=== PATIENT | male | born 1960 | race Caucasian/White ===

== ENCOUNTER 2019-06-08 06:07 | Day surgery (SDC) | payer MEDICARE ==
[2019-06-07 14:03] LABS: BASOPHILS % (AUTO) 0.4 % (0-1); EOSINOPHILS # (AUTO) 0.1 X10'3 (0-0.9); EOSINOPHILS % (AUTO) 1.9 % (0-6); HEMATOCRIT 44.3 % (42.0-52.0); HEMOGLOBIN 14.5 g/dl (14.0-17.9); LYMPHOCYTES # (AUTO) 2.3 X10'3 (1.1-4.8); LYMPHOCYTES % (AUTO) 31.8 % (21-51); MEAN CORPUSCULAR HEMOGLOBIN 28.7 PG (27.0-31.0); MEAN CORPUSCULAR HGB CONC 32.8 g/dL (33.0-36.5); MEAN CORPUSCULAR VOLUME 87.5 FL (78-98); MEAN PLATELET VOLUME 9.1 FL (7.4-10.4); MONOCYTES # (AUTO) 0.8 X10'3 (0-0.9); MONOCYTES % (AUTO) 10.6 % (2-12); NEUTROPHILS # (AUTO) 4.1 X10'3 (1.8-7.7); NEUTROPHILS % (AUTO) 55.3 % (42-75); PLATELET COUNT 152 X10'3 (140-440); RED BLOOD COUNT 5.06 X10'6 (4.70-6.10); RED CELL DISTRIBUTION WIDTH 18.2 % (11.5-14.5); WHITE BLOOD COUNT 7.3 X10'3 (4.5-11.0)
[2019-06-07 14:14] LABS: PARTIAL THROMBOPLASTIN TIME 28 SECONDS (22-32)
[2019-06-07 14:22] LABS: ALANINE AMINOTRANSFERASE 38 U/L (12-78); ALBUMIN 3.5 G/DL (3.4-5.0); ALKALINE PHOSPHATASE 95 IU/L (46-116); ANION GAP 6 (8-16); ASPARTATE AMINO TRANSFERASE 21 U/L (10-37); BILIRUBIN,TOTAL 1.1 MG/DL (0.1-1.0); BLOOD UREA NITROGEN 16 MG/DL (7-18); BUN/CREATININE RATIO 13.1 (5.4-32.0); CALCIUM 10.4 MG/DL (8.5-10.1); CHLORIDE 109 MMOL/L (99-107); CHOL/HDL RATIO 2.3 (0.00-4.99); CHOLESTEROL 121 MG/DL (0-200); CREATININE 1.22 MG/DL (0.60-1.10); GLUCOSE 100 MG/DL (70-104); HDL CHOLESTEROL 52 MG/DL (35-60); LDL CHOLESTEROL 59 MG/DL (50-100); POTASSIUM 3.9 MMOL/L (3.5-5.1); SODIUM 144 MMOL/L (135-145); TOTAL CARBON DIOXIDE 28.6 MMOL/L (24-32); TOTAL PROTEIN 6.9 G/DL (6.4-8.2); TRIGLYCERIDES 78 MG/DL (20-135); eGFR 61 ML/MIN
[~2019-06-08] VITALS: Ht 195.6 cm; Wt 121.4 kg
[2019-06-08] VITALS (15 sets, daily range): BP systolic 140–195; BP diastolic 76–109
[~2019-06-08 06:07] MED LIST: CYCL-1 PO; ONDA4TAB6 PO
[2019-06-08] MEDS ORDERED: normal saline 1,000 ML IV SCH (06:20)
[2019-06-08] MEDS ORDERED: METO50TA17 PO (07:06)
[2019-06-08] MEDS ORDERED: GLYB1TAB39 PO ×2 (07:06→07:08)
[2019-06-08] MEDS ORDERED: APIX5TAB3 PO (07:06)
[2019-06-08] MEDS ORDERED: LEVO150T8 PO (07:06)
[2019-06-08] MEDS ORDERED: DEC1T PO (07:06)
[2019-06-08] MEDS ORDERED: ASPI-1265 PO (07:06)
[2019-06-08] MEDS ORDERED: PREG100C PO (07:06)
[2019-06-08] MEDS ORDERED: FURO40TA4 PO (07:06)
[2019-06-08] MEDS ORDERED: LISI40TA4 PO (07:06)
[2019-06-08] MEDS ORDERED: ATOR40TA PO (07:06)
[2019-06-08] MEDS ORDERED: POTA-84 PO (07:06)
[2019-06-08] MEDS ORDERED: diphenhydrAMINE 25mg capsule PO PRN (07:40)
[2019-06-08] MEDS ORDERED: LORazepam 0.5 MG tablet PO PRN (07:40)
[2019-06-08] MEDS ORDERED: nitroGLYCERIN-Tridil 50MG/D5W 250 ML IV ONE (07:46)
[2019-06-08] MEDS ORDERED: iohexol 350 MG/ML 50ML vial IV ONE (07:47)
[2019-06-08] MEDS ORDERED: midazolam 2 mg/2 ml injection ONE ×2 (07:47→08:59)
[2019-06-08] MEDS ORDERED: fentaNYL/PF 50MCG/1 ML 2ML syringe ONE (07:47)
[2019-06-08] MEDS ORDERED: heparin 1,000unit/ml 10ml vial 10 ML ONE (07:47)
[2019-06-08] MEDS ORDERED: iohexol 350MG/ML 100ml bottle IV ONE ×2 (07:47→09:00)
[2019-06-08] MEDS ORDERED: LIDOcaine 1% 30ml preserv. free vial ONE (07:47)
[2019-06-08 07:53] LABS: CHOL/HDL RATIO 2.3 (0.00-4.99); CHOLESTEROL 122 MG/DL (0-200); HDL CHOLESTEROL 53 MG/DL (35-60); LDL CHOLESTEROL 59 MG/DL (50-100); TRIGLYCERIDES 54 MG/DL (20-135)
[2019-06-08] MEDS ORDERED: iohexol 350 MG/1 ML 200ml bottle ONE (08:59)
[2019-06-08] MEDS ORDERED: heparin 25,000 UNIT/250ml bag 250 ML IV ONE (09:25)
[2019-06-08 09:56] LABS: ISTAT Hct MIX 42 %PCV (42-52); ISTAT O2 SATURATION MIX VENOUS 60 % (60-80); ISTAT SOURCE MIX
[2019-06-08] MEDS ORDERED: clopidogrel 300mg tablet ONE (09:58)
[2019-06-08] MEDS ORDERED: aspirin 81mg tab.chew PO SCH (11:36)
[2019-06-08] MEDS ORDERED: acetaminophen 325mg tablet PO PRN (11:40)
[2019-06-08] MEDS ORDERED: magnesium hydroxide 30ml (MOM) UD suspension PO PRN (11:40)
[2019-06-08] MEDS ORDERED: OXAZEpam 15mg capsule PO PRN (11:40)
[2019-06-08] MEDS ORDERED: normal saline 1000ml 1,000 ML IV SCH (11:40)
[2019-06-08] MEDS ORDERED: HYDROcodone/acetaminophen 10/325mg tab PO PRN (11:40)
[2019-06-08] MEDS ORDERED: proCHLORperazine 10 MG/2 ml inj IV PRN (11:40)
[2019-06-08] MEDS ORDERED: cyclobenzaprine 10mg tablet PO PRN (11:40)
[2019-06-08] MEDS ORDERED: heparin 25,000 UNIT/250ml bag 250 ML IV SCH (11:42)
[2019-06-08] MEDS ORDERED: heparin 10,000 units/1 ML INJ IV PRN (11:45)
[2019-06-08] MEDS ORDERED: heparin 10,000 units/1 ML INJ IV ONE (11:45)
[2019-06-08] MEDS: acetylcysteine 200 MG/ml 4ml vial PO SCH ×2 (11:49→17:11)
[2019-06-08] MEDS: HYDROcodone/acetaminophen 10/325mg tab PO PRN ×2 (11:50→17:04)
[2019-06-08 12:15] LABS: ISTAT HGB ART 14.3 g/dl (14.0-18.0); ISTAT Hct ART 42 %PCV (42-52); ISTAT O2 SATURATION ARTERIAL 98 % (95-98); ISTAT SOURCE ART
--- NOTE | 2019-06-08 12:30 | NUR ---
spoke with Billy in labor relations worker, relayed ACT result. pt ready to have angioseal placed per order. Waiting for Cath RN. Pt resting comfortably. Appears to be resting, vs stable as charted. pt respirations even.
--- NOTE | 2019-06-08 14:14 | NUR ---
Problems reprioritized. Patient report given, questions answered & plan of care reviewed with Messi FUENTES.
[2019-06-08] MEDS ORDERED: docusate sod 100mg capsule PO SCH (20:00)
[2019-06-09] MEDS ORDERED: clopidogrel 75mg tablet PO SCH (08:00)
== END 2019-06-08 18:55 | disposition home or self-care (01) ==
LOC: SSTAY O 06:07
PROVIDERS: ATTEND Internal Medicine Cardiovascular Disease
DX: I25.10 Atherosclerotic heart disease of native coronary artery without angina pectoris (principal); I25.82 Chronic total occlusion of coronary artery; E78.5 Hyperlipidemia, unspecified; E11.9 Type 2 diabetes mellitus without complications; G47.33 Obstructive sleep apnea (adult) (pediatric); Z79.899 Other long term (current) drug therapy; Z95.1 Presence of aortocoronary bypass graft
CPT/HCPCS: 36415; 80053; 80061; 82803; 85014; 85025; 85347; 85610; 85730; 93005; 93461; 99152; 99153; C1725; C1769; C1874; C9600; C9601; J1644; J2001; J2250; J3010; J7030; J7040; Q0163; Q9967; A4620; A6258; J3490

== ENCOUNTER 2019-06-15 05:28 | Day surgery (SDC) | payer MEDICARE ==
[2019-06-14 12:43] LABS: BASOPHILS % (AUTO) 0.6 % (0-1); EOSINOPHILS # (AUTO) 0.1 X10'3 (0-0.9); EOSINOPHILS % (AUTO) 2.6 % (0-6); HEMOGLOBIN 14.1 g/dl (14.0-17.9); LYMPHOCYTES # (AUTO) 1.4 X10'3 (1.1-4.8); LYMPHOCYTES % (AUTO) 25.3 % (21-51); MEAN CORPUSCULAR HEMOGLOBIN 28.4 PG (27.0-31.0); MEAN CORPUSCULAR HGB CONC 32.7 g/dL (33.0-36.5); MEAN PLATELET VOLUME 8.8 FL (7.4-10.4); MONOCYTES # (AUTO) 0.5 X10'3 (0-0.9); MONOCYTES % (AUTO) 9.4 % (2-12); NEUTROPHILS # (AUTO) 3.4 X10'3 (1.8-7.7); NEUTROPHILS % (AUTO) 62.1 % (42-75); PLATELET COUNT 120 X10'3 (140-440); RED BLOOD COUNT 4.95 X10'6 (4.70-6.10); RED CELL DISTRIBUTION WIDTH 18.2 % (11.5-14.5); WHITE BLOOD COUNT 5.4 X10'3 (4.5-11.0)
[2019-06-14 12:59] LABS: ALBUMIN 3.5 G/DL (3.4-5.0); ANION GAP 7 (8-16); BLOOD UREA NITROGEN 11 MG/DL (7-18); BUN/CREATININE RATIO 9.4 (5.4-32.0); CHLORIDE 109 MMOL/L (99-107); CREATININE 1.17 MG/DL (0.60-1.10); GLUCOSE 153 MG/DL (70-104); SODIUM 143 MMOL/L (135-145); TOTAL CARBON DIOXIDE 26.9 MMOL/L (24-32); eGFR 64 ML/MIN
[2019-06-14 13:07] LABS: PARTIAL THROMBOPLASTIN TIME 30 SECONDS (22-32)
[2019-06-15] VITALS (13 sets, daily range): BP systolic 120–199; BP diastolic 63–102
[~2019-06-15] VITALS: Ht 195.6 cm; Wt 121.7 kg
[~2019-06-15 05:28] MED LIST changes: +APIX5TAB3 PO; +ASPI-1265 PO; +ATOR40TA PO; -CYCL-1 PO; +DEC1T PO; +FURO40TA4 PO; +GLYB1TAB39 PO; +LEVO150T8 PO; +LISI40TA4 PO; +METO50TA17 PO; -ONDA4TAB6 PO; +POTA-84 PO; +PREG100C PO
[2019-06-15] MEDS ORDERED: LORazepam 0.5 MG tablet PO PRN (05:55)
[2019-06-15] MEDS ORDERED: diphenhydrAMINE 25mg capsule PO PRN (05:55)
[2019-06-15] MEDS ORDERED: LIDOcaine/PRILOcaine 5gm cream TP ONE (06:10)
[2019-06-15] MEDS ORDERED: CLOP75TA15 PO (07:18)
[2019-06-15] MEDS ORDERED: nitroGLYCERIN-Tridil 50MG/D5W 250 ML IV ONE (07:52)
[2019-06-15] MEDS ORDERED: heparin 1,000unit/ml 10ml vial 10 ML ONE (07:52)
[2019-06-15] MEDS ORDERED: LIDOcaine 1% (10mg/ml)w/preservative injection 20ml MDV ONE (07:52)
[2019-06-15] MEDS ORDERED: iohexol 350 MG/1 ML 200ml bottle ONE (07:53)
[2019-06-15] MEDS ORDERED: verapamil 2.5 mg/ml inj IV ONE (07:54)
[2019-06-15] MEDS ORDERED: midazolam 2 mg/2 ml injection ONE (08:12)
[2019-06-15] MEDS ORDERED: fentaNYL/PF 50MCG/1 ML 2ML syringe ONE (08:13)
[2019-06-15] MEDS ORDERED: heparin 25,000 UNIT/250ml bag 250 ML IV ONE (08:43)
[2019-06-15] MEDS ORDERED: clopidogrel 300mg tablet ONE (09:11)
[2019-06-15] MEDS ORDERED: normal saline 1000ml 1,000 ML IV SCH (09:50)
[2019-06-15] MEDS ORDERED: cyclobenzaprine 10mg tablet PO PRN (10:10)
[2019-06-15] MEDS ORDERED: OXAZEpam 15mg capsule PO PRN (10:10)
[2019-06-15] MEDS ORDERED: HYDROcodone/acetaminophen 10/325mg tab PO PRN ×2 (10:10)
[2019-06-15] MEDS ORDERED: acetaminophen 325mg tablet PO PRN (10:10)
[2019-06-15] MEDS ORDERED: magnesium hydroxide 30ml (MOM) UD suspension PO PRN (10:10)
[2019-06-15] MEDS ORDERED: aspirin 81mg tab.chew PO ONE (10:15)
--- NOTE | 2019-06-15 11:33 | NUR ---
pt spO2 fluctuating between 95% and 85% as he is intermittency sleeping. placed pt on 2L O2. will continue to monitor
[2019-06-15] MEDS ORDERED: docusate sod 100mg capsule PO SCH (20:00)
[2019-06-16] MEDS ORDERED: aspirin 81mg tab.chew PO SCH (08:00)
[2019-06-16] MEDS ORDERED: clopidogrel 75mg tablet PO SCH (08:00)
== END 2019-06-15 16:00 | disposition home or self-care (01) ==
LOC: SSTAY O 05:28
PROVIDERS: ATTEND Internal Medicine Cardiovascular Disease
DX: I25.10 Atherosclerotic heart disease of native coronary artery without angina pectoris (principal); I10 Essential (primary) hypertension; E78.5 Hyperlipidemia, unspecified; I48.2 Chronic atrial fibrillation; E03.9 Hypothyroidism, unspecified; E11.9 Type 2 diabetes mellitus without complications; G47.33 Obstructive sleep apnea (adult) (pediatric); Z98.890 Other specified postprocedural states; Z88.0 Allergy status to penicillin; Z95.1 Presence of aortocoronary bypass graft; Z79.01 Long term (current) use of anticoagulants; Z79.899 Other long term (current) drug therapy; Z79.82 Long term (current) use of aspirin; Z79.84 Long term (current) use of oral hypoglycemic drugs
CPT/HCPCS: 36415; 80048; 82948; 85025; 85347; 85610; 85730; 93005; 99152; 99153; C1725; C1769; C1874; C1894; C9604; J1644; J2001; J2250; J3010; J7030; Q0163; Q9967; 93459; A4620; C9600; J3490

== ENCOUNTER 2019-10-20 13:35 | Emergency (ER) | payer MEDICARE ==
[~2019-10-20] VITALS: Ht 195.6 cm; Wt 122.0 kg
[~2019-10-20 13:35] MED LIST changes: +CLOP75TA15 PO
[2019-10-20 14:07] VITALS: BP 167/120
[2019-10-20 15:08] LABS: BASOPHILS % (AUTO) 0.7 % (0-1); EOSINOPHILS # (AUTO) 0.3 X10'3 (0-0.9); EOSINOPHILS % (AUTO) 4.3 % (0-6); HEMATOCRIT 43.2 % (42.0-52.0); HEMOGLOBIN 13.9 g/dl (14.0-17.9); LYMPHOCYTES # (AUTO) 1.5 X10'3 (1.1-4.8); LYMPHOCYTES % (AUTO) 20.9 % (21-51); MEAN CORPUSCULAR HGB CONC 32.1 g/dL (33.0-36.5); MEAN CORPUSCULAR VOLUME 84.2 FL (78-98); MEAN PLATELET VOLUME 8.8 FL (7.4-10.4); MONOCYTES # (AUTO) 0.7 X10'3 (0-0.9); MONOCYTES % (AUTO) 10.6 % (2-12); NEUTROPHILS # (AUTO) 4.4 X10'3 (1.8-7.7); NEUTROPHILS % (AUTO) 63.5 % (42-75); PLATELET COUNT 170 X10'3 (140-440); RED BLOOD COUNT 5.13 X10'6 (4.70-6.10); RED CELL DISTRIBUTION WIDTH 18.7 % (11.5-14.5)
[2019-10-20 15:20] LABS: ALANINE AMINOTRANSFERASE 27 U/L (12-78); ALBUMIN 3.4 G/DL (3.4-5.0); ALKALINE PHOSPHATASE 115 IU/L (46-116); ANION GAP 4 (8-16); ASPARTATE AMINO TRANSFERASE 19 U/L (10-37); BILIRUBIN,TOTAL 1.3 MG/DL (0.1-1.0); BLOOD UREA NITROGEN 17 MG/DL (7-18); BUN/CREATININE RATIO 13.2 (5.4-32.0); CALCIUM 10.3 MG/DL (8.5-10.1); CHLORIDE 106 MMOL/L (99-107); CREATININE 1.29 MG/DL (0.60-1.10); GLUCOSE 211 MG/DL (70-104); POTASSIUM 4.2 MMOL/L (3.5-5.1); SODIUM 140 MMOL/L (135-145); TOTAL CARBON DIOXIDE 30.5 MMOL/L (24-32); TOTAL PROTEIN 6.9 G/DL (6.4-8.2); eGFR 57 ML/MIN
[2019-10-20] MEDS ORDERED: ondansetron 4mg rapidly disintigrating tab PO ONE (15:55)
[2019-10-20] MEDS ORDERED: HYDROcodone/acetaminophen 10/325mg tab PO ONE (15:55)
[2019-10-20] MEDS ORDERED: ketorolac trometh. 30mg/ml inj. IM ONE (15:55)
[2019-10-20] MEDS ORDERED: amLODIPine 5mg tablet PO ONE (16:05)
[2019-10-20 16:21] LABS: PLATELET ESTIMATE NORMAL
[2019-10-20 16:22] LABS: ANISOCYTOSIS 2+
== END 2019-10-20 16:35 | disposition home or self-care (01) ==
LOC: ER 13:36
DX: R07.81 Pleurodynia (principal); I48.91 Unspecified atrial fibrillation; I10 Essential (primary) hypertension; G89.29 Other chronic pain; Z98.61 Coronary angioplasty status; Z95.1 Presence of aortocoronary bypass graft; Z98.890 Other specified postprocedural states; Z88.0 Allergy status to penicillin; Z88.8 Allergy status to other drugs, medicaments and biological substances; Z79.82 Long term (current) use of aspirin; Z79.899 Other long term (current) drug therapy
CPT/HCPCS: 36415; 71045; 80053; 84484; 85025; 93005; 96372; 99284; J1885

== ENCOUNTER 2021-04-21 13:11 | Inpatient (IN) | payer MEDICARE ==
[~2021-04-21] VITALS: Ht 195.6 cm; Wt 122.7 kg
[~2021-04-21 13:11] MED LIST changes: -APIX5TAB3 PO; -ASPI-1265 PO; +ASPI-845 PO; +CLIN300C54 PO; -CLOP75TA15 PO; -DEC1T PO; +DEXA0.5T PO; +LEVO137T2 PO; -LEVO150T8 PO; +LISI40TA13 PO; -LISI40TA4 PO; +OXYC-145 PO; -PREG100C PO; +SOMA10CA5 SQ; +TEST200V10 IM
[2021-04-21 14:24] LABS: BASOPHILS # (AUTO) 0.1 X10'3 (0-0.2); BASOPHILS % (AUTO) 0.8 % (0-1); EOSINOPHILS # (AUTO) 0.4 X10'3 (0-0.9); EOSINOPHILS % (AUTO) 4.4 % (0-6); HEMATOCRIT 47.4 % (42.0-52.0); HEMOGLOBIN 15.3 g/dl (14.0-17.9); LYMPHOCYTES # (AUTO) 1.4 X10'3 (1.1-4.8); LYMPHOCYTES % (AUTO) 14.2 % (21-51); MEAN CORPUSCULAR HEMOGLOBIN 27.9 PG (27.0-31.0); MEAN CORPUSCULAR HGB CONC 32.3 g/dL (33.0-36.5); MEAN CORPUSCULAR VOLUME 86.4 FL (78-98); MEAN PLATELET VOLUME 8.4 FL (7.4-10.4); MONOCYTES # (AUTO) 0.9 X10'3 (0-0.9); MONOCYTES % (AUTO) 9.3 % (2-12); NEUTROPHILS % (AUTO) 71.3 % (42-75); PLATELET COUNT 217 X10'3 (140-440); RED BLOOD COUNT 5.48 X10'6 (4.70-6.10); RED CELL DISTRIBUTION WIDTH 17.9 % (11.5-14.5); WHITE BLOOD COUNT 9.8 X10'3 (4.5-11.0)
[2021-04-21] MEDS ORDERED: oxyCODONE/APAP 5-325mg tablet PO ONE (14:25)
[2021-04-21 14:37] LABS: ALANINE AMINOTRANSFERASE 21 U/L (12-78); ALBUMIN 3.1 G/DL (3.4-5.0); ALBUMIN/GLOBULIN RATIO 0.8 (1.1-1.5); ALKALINE PHOSPHATASE 100 IU/L (46-116); ANION GAP -1 (8-16); ASPARTATE AMINO TRANSFERASE 22 U/L (10-37); BILIRUBIN,TOTAL 1.7 MG/DL (0.1-1.0); BLOOD UREA NITROGEN 17 MG/DL (7-18); BUN/CREATININE RATIO 13.6 (5.4-32.0); CALCIUM 10.5 MG/DL (8.5-10.1); CHLORIDE 107 MMOL/L (99-107); CREATININE 1.25 MG/DL (0.60-1.10); GLUCOSE 148 MG/DL (70-104); POTASSIUM 3.5 MMOL/L (3.5-5.1); SODIUM 134 MMOL/L (135-145); TOTAL CARBON DIOXIDE 27.8 MMOL/L (24-32); TOTAL PROTEIN 6.8 G/DL (6.4-8.2); eGFR 59 ML/MIN
--- NOTE | 2021-04-21 14:55 | NUR ---
ASSISTING RN WITH PT CARE, PT IS RESTING QUIETLY ON GURNEY, RESP EVEN AND UNLABORED
[2021-04-21] MEDS ORDERED: magnesium 4gm in 100ml NS 100 ML IV PRN (16:40)
[2021-04-21] MEDS ORDERED: dextrose ORAL solution 15 GM/59 ML bottle PO PRN ×2 (16:40)
[2021-04-21] MEDS ORDERED: magnesium Cl slow-release 64mg tablet PO PRN (16:40)
[2021-04-21] MEDS ORDERED: potassium Cl 20 mEq SR tablet PO PRN ×2 (16:40)
[2021-04-21] MEDS ORDERED: potassium Cl 40MEQ/1/2NS 520ml 520 ML IV PRN ×2 (16:40)
[2021-04-21] MEDS ORDERED: heparin 25,000 UNIT/250ml bag 250 ML IV SCH (16:40)
[2021-04-21] MEDS ORDERED: glucagon, human recombinant 1mg kit SUBCUT PRN (16:40)
[2021-04-21] MEDS ORDERED: heparin 10,000 units/1 ML INJ IV ONE (16:40)
[2021-04-21] MEDS ORDERED: MESSAGE TO PHARMACY PO ONE (16:40)
[2021-04-21] MEDS ORDERED: diphenhydrAMINE 25mg capsule PO PRN (16:40)
[2021-04-21] MEDS ORDERED: bisacodyl 10mg suppository rectal RC PRN (16:40)
[2021-04-21] MEDS ORDERED: acetaminophen 325mg tablet PO PRN ×2 (16:40)
[2021-04-21] MEDS ORDERED: dextrose 50%-water 50ml dispensing syringe IV PRN ×2 (16:40)
[2021-04-21] MEDS ORDERED: magnesium hydroxide 30ml (MOM) UD suspension PO PRN (16:40)
[2021-04-21] MEDS ORDERED: ondansetron/PF 4mg/2ml inj IV PRN (16:40)
[2021-04-21] MEDS ORDERED: magnesium 2GM in 50ml NS 50 ML IV PRN (16:40)
[2021-04-21] MEDS ORDERED: acetaminophen 650mg rectal suppository RC PRN (16:40)
[2021-04-21] MEDS ORDERED: insulin Lispro (HumaLOG) vial - multi-dose SQ SCH (16:40)
[2021-04-21 16:58] LABS: BASOPHILS # (AUTO) 0.1 X10'3 (0-0.2); BASOPHILS % (AUTO) 1.2 % (0-1); EOSINOPHILS # (AUTO) 0.4 X10'3 (0-0.9); EOSINOPHILS % (AUTO) 4.6 % (0-6); HEMATOCRIT 47.8 % (42.0-52.0); HEMOGLOBIN 15.8 g/dl (14.0-17.9); LYMPHOCYTES # (AUTO) 1.7 X10'3 (1.1-4.8); LYMPHOCYTES % (AUTO) 16.9 % (21-51); MEAN CORPUSCULAR HEMOGLOBIN 28.5 PG (27.0-31.0); MEAN CORPUSCULAR VOLUME 86.3 FL (78-98); MEAN PLATELET VOLUME 8.4 FL (7.4-10.4); MONOCYTES # (AUTO) 0.9 X10'3 (0-0.9); MONOCYTES % (AUTO) 9.2 % (2-12); NEUTROPHILS # (AUTO) 6.6 X10'3 (1.8-7.7); NEUTROPHILS % (AUTO) 68.1 % (42-75); PLATELET COUNT 222 X10'3 (140-440); RED BLOOD COUNT 5.54 X10'6 (4.70-6.10); RED CELL DISTRIBUTION WIDTH 17.9 % (11.5-14.5); WHITE BLOOD COUNT 9.7 X10'3 (4.5-11.0)
[2021-04-21 17:06] LABS: PARTIAL THROMBOPLASTIN TIME 27 SECONDS (22-32)
[2021-04-21] MEDS: normal saline 1000ml 1,000 ML IV SCH (17:06)
[2021-04-21 17:13] LABS: HEMOGLOBIN A1C 9.2 % (4.5-6.2)
[2021-04-21] MEDS: K and/or MAG REPLACEMENT MC SCH (20:00)
--- NOTE | 2021-04-21 20:10 | NUR ---
Patient in room PCU 3014. I have received report from ER nurse and had the opportunity to ask questions and assume patient care.
[2021-04-21 20:45] VITALS: BP 158/85
[2021-04-21] MEDS: insulin glargine (Lantus) pen - multi-dose SQ SCH (21:00)
[2021-04-21] MEDS: lisinopril 20mg tablet PO SCH (21:56)
[2021-04-21] MEDS: aspirin 325mg tablet, delayed-release (Ecotrin) PO SCH (21:56)
[2021-04-21] MEDS: oxyCODONE/APAP 5-325mg tablet PO PRN (21:57)
[2021-04-21] MEDS: metoprolol tartrate 50mg tablet PO SCH (21:58)
[2021-04-21] MEDS ORDERED: metoprolol tartrate 1mg/ml inj IV PRN (22:20)
[2021-04-21] MEDS ORDERED: regadenoson 0.4mg/5ml syringe IV PRN (22:20)
[2021-04-21] MEDS ORDERED: nitroGLYCERIN 0.4mg SUBLingual tab SL PRN (22:20)
[2021-04-21] MEDS ORDERED: aminophylline 250mg/10ml inj. IV PRN (22:20)
[2021-04-22] VITALS (12 sets, daily range): BP systolic 131–170; BP diastolic 78–97
[2021-04-22] MEDS: heparin 10,000 units/1 ML INJ IV PRN ×2 (00:25→07:44)
[2021-04-22] MEDS: Melatonin 3mg tablet PO PRN (00:51)
[2021-04-22] MEDS: clindamycin 150mg capsule PO SCH ×4 (02:13→20:01)
[2021-04-22] MEDS: mag hydrox/Alum hydrox/simeth 30ml oral suspension PO PRN ×2 (02:38→08:33)
[2021-04-22] MEDS: normal saline 1000ml 1,000 ML IV SCH ×2 (02:40→11:36)
[2021-04-22 03:58] LABS: ALANINE AMINOTRANSFERASE 24 U/L (12-78); ALBUMIN/GLOBULIN RATIO 0.9 (1.1-1.5); ALKALINE PHOSPHATASE 93 IU/L (46-116); ANION GAP 10 (8-16); ASPARTATE AMINO TRANSFERASE 17 U/L (10-37); BILIRUBIN,TOTAL 1.6 MG/DL (0.1-1.0); BLOOD UREA NITROGEN 17 MG/DL (7-18); BUN/CREATININE RATIO 14.9 (5.4-32.0); CALCIUM 9.9 MG/DL (8.5-10.1); CHLORIDE 106 MMOL/L (99-107); CREATININE 1.14 MG/DL (0.60-1.10); GLUCOSE 183 MG/DL (70-104); POTASSIUM 3.5 MMOL/L (3.5-5.1); SODIUM 141 MMOL/L (135-145); TOTAL CARBON DIOXIDE 25.5 MMOL/L (24-32); TOTAL PROTEIN 6.5 G/DL (6.4-8.2); eGFR 65 ML/MIN
[2021-04-22 04:09] LABS: CHOL/HDL RATIO 3.4 (0.00-4.99); CHOLESTEROL 109 MG/DL (0-200); HDL CHOLESTEROL 32 MG/DL (35-60); LDL CHOLESTEROL 64 MG/DL (50-100); PHOSPHORUS 2.8 MG/DL (2.3-4.5); TRIGLYCERIDES 55 MG/DL (20-135)
--- NOTE | 2021-04-22 06:25 | NUR ---
Problems reprioritized. Patient report given, questions answered & plan of care reviewed with ALFREDO De Leon.
--- NOTE | 2021-04-22 06:47 | NUR ---
Patient in room PCU 3014. I have received report from Barbara FUENTES and had the opportunity to ask questions and assume patient care.
[2021-04-22 07:10] LABS: BASOPHILS % (AUTO) 0.7 % (0-1); EOSINOPHILS # (AUTO) 0.4 X10'3 (0-0.9); EOSINOPHILS % (AUTO) 6.5 % (0-6); HEMATOCRIT 45.9 % (42.0-52.0); HEMOGLOBIN 14.8 g/dl (14.0-17.9); LYMPHOCYTES # (AUTO) 1.5 X10'3 (1.1-4.8); LYMPHOCYTES % (AUTO) 22.3 % (21-51); MEAN CORPUSCULAR HGB CONC 32.2 g/dL (33.0-36.5); MEAN CORPUSCULAR VOLUME 86.8 FL (78-98); MEAN PLATELET VOLUME 8.6 FL (7.4-10.4); MONOCYTES # (AUTO) 0.6 X10'3 (0-0.9); MONOCYTES % (AUTO) 9.7 % (2-12); NEUTROPHILS % (AUTO) 60.8 % (42-75); PLATELET COUNT 194 X10'3 (140-440); RED BLOOD COUNT 5.29 X10'6 (4.70-6.10); RED CELL DISTRIBUTION WIDTH 17.8 % (11.5-14.5); WHITE BLOOD COUNT 6.7 X10'3 (4.5-11.0)
--- NOTE | 2021-04-22 07:52 | NUR ---
PTT was 28, still low. Kept the infusion rate at 1500 units/hr. Current dose rate on the IV pump screen says 15 units/hr not 1500 units/hr. Will monitor PTT in 6 hours. Charge nurse Nina aware about the dose of Heparin gtt of what is supposed to be and what the IV pump screen says. She advised to keep the rate of 1500units/hr and we will see the next PTT in 6 hours.
[2021-04-22] MEDS: K and/or MAG REPLACEMENT MC SCH ×2 (08:00→20:00)
[2021-04-22] MEDS: levoTHYROXINE 25mcg tablet PO SCH (08:01)
[2021-04-22] MEDS: levoTHYROXINE 112mcg tablet PO SCH (08:01)
[2021-04-22] MEDS: metoprolol tartrate 50mg tablet PO SCH ×2 (08:01→20:01)
[2021-04-22] MEDS: oxyCODONE/APAP 5-325mg tablet PO PRN ×3 (08:02→21:10)
[2021-04-22] MEDS: atorvastatin 20mg tablet PO SCH (08:02)
[2021-04-22] MEDS: lisinopril 20mg tablet PO SCH ×2 (08:03→20:01)
[2021-04-22 08:53] LABS: CLARITY,URINE CLEAR (Clear); COLOR,URINE DARK YELLOW (Yellow); GLUCOSE, URINE NEGATIVE (Neg); KETONES,URINE NEGATIVE (Neg); LEUKOCYTE ESTERASE ,URINE NEGATIVE (Neg); NITRITES, URINE NEGATIVE (Neg); OCCULT BLOOD,URINE NEGATIVE (Neg); PH,URINE 5.5 (4.8-8.0); PROTEIN,URINE TRACE mg/dl (Neg); UA COLLECTION TYPE NON-SPECIFIED; UROBILINOGEN,URINE 0.2 E.U/dL (0.2-1.0)
[2021-04-22 09:03] LABS: HYALINE CASTS 0-3 /LPF (NEGATIVE); MUCUS STRANDS MANY /LPF (Neg); SQUAMOUS EPITHELIAL CELL,UR NONE SEEN /LPF (FEW); TRANSITIONAL EPI CELLS,URINE FEW /HPF
[2021-04-22 09:04] LABS: BACTERIA,URINE FEW /HPF (Neg); RBC,URINE 0-2 /HPF (0-2); RENAL CELLS, URINE FEW /HPF; WBC,URINE 0-4 /HPF (0-4)
[2021-04-22 09:08] LABS: URINE AMPHETAMINE SCREEN NEGATIVE (Neg); URINE BARBITUATE SCREEN NEGATIVE (Neg); URINE BENZODIAZEPINES SCREEN NEGATIVE (Neg); URINE CANNABINOID SCREEN POSITIVE (Neg); URINE COCAINE SCREEN NEGATIVE (Neg); URINE METHADONE SCREEN NEGATIVE (Neg); URINE OPIATE SCREEN NEGATIVE (Neg); URINE PHENCYCLIDINE SCREEN NEGATIVE (Neg)
--- NOTE | 2021-04-22 09:18 | NUR ---
Patient still currently at Stress Test at this time. Will d/c the heparin gtt once patient is back to his room.
--- NOTE | 2021-04-22 11:03 | NUR ---
Heparin drip discontinued after patient came back to his room from Stress test
--- NOTE | 2021-04-22 11:27 | NUR ---
Paged Vascular PCU Moises FUENTES ext [phone]. RE: Bony Mcallister. Patient has been back to his room. Can we please do the venous study of his leg now?
--- NOTE | 2021-04-22 11:37 | NUR ---
Administered normal saline, bag wouldn't scan.
--- NOTE | 2021-04-22 13:18 | NUR ---
Paged Dr. Castro PAGER ID: [phone] MESSAGE: YOKO De Leon RN ext [phone]. RE: Bony Mcallister. Patient complaining of back pain and bilateral legs, his Percocet is not due yet its daily PRN. He said his pain is 8/10. Can we increase frequency of Percocet?
--- NOTE | 2021-04-22 13:59 | NUR ---
Repaged Dr. Castro about still complaining of pain, I am asking if I can give patient an extra dose of percocet
--- NOTE | 2021-04-22 14:30 | NUR ---
Paged Dr. Castro PAGER ID: [phone] MESSAGE: YOKO De Leon RN ext [phone]. RE: Bony Mcallister. Follow up page. Patient is crying in pain on his back. Percocet order is only daily PRN and was already given this am. Can we increase the Percocet frequency or have IV pain medicine order?
--- NOTE | 2021-04-22 14:43 | NUR ---
Percocet 1 tab given for pain, patient stated that the warm compress I applied on his back helped a little bit. I also notified PT Kevin that Dr. Castro wanted to make sure patient being seen by PT today and that I medicated patient with Percocet for pain.
--- NOTE | 2021-04-22 15:12 | NUR ---
DM Consult: A1C 9.2 hx T2DM. Pt seen by [facility] for written/verbal DM ed recent admit 04/16. Will remain available if further questions/concerns this admit. Addendum: 04/22/21 at [address] Amended: Links added.
--- NOTE | 2021-04-22 15:22 | NUR ---
Paged Physical Therapist reminding about the physical therapy today, that patient has been medicated for pain, and that Dr. Castro is expecting this patient be seen by PT today.
--- NOTE | 2021-04-22 17:39 | NUR ---
Dr. Castro seen patient. Patient expressed need to change his primary care provider. Telephone number for [facility] was written on a piece of paper and given to patient.
--- NOTE | 2021-04-22 18:36 | NUR ---
Problems reprioritized. Patient report given, questions answered & plan of care reviewed with Kasie FUENTES.
--- NOTE | 2021-04-22 19:05 | NUR ---
Patient in room PCU 3014. I have received report from Moises FUENTES and had the opportunity to ask questions and assume patient care.
[2021-04-22] MEDS: lactobacillus rhamnosus 10,000 MMU CELLS/CAPSULE PO SCH (20:01)
[2021-04-22] MEDS: aspirin 325mg tablet, delayed-release (Ecotrin) PO SCH (20:01)
[2021-04-22] MEDS: heparin, porcine 5000 units/ml vial SQ SCH (20:02)
[2021-04-22] MEDS: insulin glargine (Lantus) pen - multi-dose SQ SCH (21:16)
[2021-04-23] MEDS: Melatonin 3mg tablet PO PRN (00:57)
[2021-04-23] MEDS: clindamycin 150mg capsule PO SCH ×2 (02:29→07:46)
[2021-04-23] MEDS: oxyCODONE/APAP 5-325mg tablet PO PRN (04:38)
[2021-04-23 06:00] VITALS: BP 128/85
--- NOTE | 2021-04-23 06:06 | NUR ---
Problems reprioritized. Patient report given, questions answered & plan of care reviewed with Mina FUENTES.
--- NOTE | 2021-04-23 06:35 | NUR ---
Patient in room PCU 3014. I have received report from Kasie FUENTES and had the opportunity to ask questions and assume patient care.
[2021-04-23 07:15] LABS: BASOPHILS % (AUTO) 0.7 % (0-1); EOSINOPHILS # (AUTO) 0.4 X10'3 (0-0.9); HEMOGLOBIN 14.8 g/dl (14.0-17.9); LYMPHOCYTES # (AUTO) 1.4 X10'3 (1.1-4.8); LYMPHOCYTES % (AUTO) 21.4 % (21-51); MEAN CORPUSCULAR HEMOGLOBIN 27.6 PG (27.0-31.0); MEAN CORPUSCULAR HGB CONC 32.3 g/dL (33.0-36.5); MEAN CORPUSCULAR VOLUME 85.7 FL (78-98); MEAN PLATELET VOLUME 8.7 FL (7.4-10.4); MONOCYTES # (AUTO) 0.7 X10'3 (0-0.9); MONOCYTES % (AUTO) 10.5 % (2-12); NEUTROPHILS # (AUTO) 3.9 X10'3 (1.8-7.7); NEUTROPHILS % (AUTO) 61.4 % (42-75); PLATELET COUNT 182 X10'3 (140-440); RED BLOOD COUNT 5.37 X10'6 (4.70-6.10); RED CELL DISTRIBUTION WIDTH 18.1 % (11.5-14.5); WHITE BLOOD COUNT 6.4 X10'3 (4.5-11.0)
[2021-04-23] MEDS: levoTHYROXINE 112mcg tablet PO SCH (07:45)
[2021-04-23] MEDS: metoprolol tartrate 50mg tablet PO SCH (07:45)
[2021-04-23] MEDS: levoTHYROXINE 25mcg tablet PO SCH (07:45)
[2021-04-23] MEDS: lisinopril 20mg tablet PO SCH (07:46)
[2021-04-23] MEDS: lactobacillus rhamnosus 10,000 MMU CELLS/CAPSULE PO SCH (07:46)
[2021-04-23] MEDS: atorvastatin 20mg tablet PO SCH (07:46)
[2021-04-23 07:47] LABS: ALANINE AMINOTRANSFERASE 23 U/L (12-78); ALBUMIN 3.1 G/DL (3.4-5.0); ALBUMIN/GLOBULIN RATIO 0.9 (1.1-1.5); ALKALINE PHOSPHATASE 91 IU/L (46-116); ANION GAP 8 (8-16); ASPARTATE AMINO TRANSFERASE 16 U/L (10-37); BILIRUBIN,TOTAL 1.5 MG/DL (0.1-1.0); BLOOD UREA NITROGEN 16 MG/DL (7-18); CALCIUM 9.6 MG/DL (8.5-10.1); CHLORIDE 105 MMOL/L (99-107); CREATININE 1.23 MG/DL (0.60-1.10); GLUCOSE 172 MG/DL (70-104); MAGNESIUM 2.3 MG/DL (1.5-2.4); PHOSPHORUS 2.1 MG/DL (2.3-4.5); POTASSIUM 4.1 MMOL/L (3.5-5.1); SODIUM 139 MMOL/L (135-145); TOTAL CARBON DIOXIDE 26.1 MMOL/L (24-32); TOTAL PROTEIN 6.6 G/DL (6.4-8.2); eGFR 60 ML/MIN
[2021-04-23] MEDS: heparin, porcine 5000 units/ml vial SQ SCH (07:48)
[2021-04-23] MEDS: K and/or MAG REPLACEMENT MC SCH (08:22)
[2021-04-23] MEDS ORDERED: NITR0.4T51 SL (08:44)
[2021-04-23] MEDS ORDERED: LACT1CAP26 PO (08:44)
[2021-04-23] MEDS ORDERED: ASPI-1071 PO (08:44)
[2021-04-23 11:00] VITALS: BP 121/97
--- NOTE | 2021-04-23 11:39 | NUR ---
Patient is stable for discharge per MD orders. All discharge instructions reviewed with patient and all questions answered. Patient will make own follow up with PCP. New Rx's e-scripted to [facility] on [address] [place]. PIV discontinued, cannula intact. technical support internship discontinued. Belongings collected and sent with patient. Patient was wheeled to front of lobby where private vehicle was waiting.
[2021-04-24] MEDS ORDERED: [UNRECOGNIZED DRUG - OTHER] (02:58)
== END 2021-04-23 11:39 | disposition home health service (06) | DRG 922 ==
LOC: ER 13:12 → ED HOLD 16:36 → EDBEDREQ 19:37 → PCU 3S 20:05
PROVIDERS: ADMIT Family Medicine; ATTEND Family Medicine
PROC: 4A02XM4 Measurement of Cardiac Total Activity, External Approach (ICD-10-PCS; principal; 2021-04-21)
PROC: 3E073KZ Introduction of Other Diagnostic Substance into Coronary Artery, Percutaneous Approach (ICD-10-PCS; 2021-04-21)
DX: T67.5XXA Heat exhaustion, unspecified, initial encounter (principal); I21.A1 Myocardial infarction type 2; I25.10 Atherosclerotic heart disease of native coronary artery without angina pectoris; E11.9 Type 2 diabetes mellitus without complications; E66.01 Morbid (severe) obesity due to excess calories; E78.5 Hyperlipidemia, unspecified; E86.0 Dehydration; F11.10 Opioid abuse, uncomplicated; F12.10 Cannabis abuse, uncomplicated; G89.4 Chronic pain syndrome; M54.9 Dorsalgia, unspecified; X58.XXXA Exposure to other specified factors, initial encounter; I27.29 Other secondary pulmonary hypertension; I27.81 Cor pulmonale (chronic); I48.91 Unspecified atrial fibrillation; Z79.899 Other long term (current) drug therapy; Z80.1 Family history of malignant neoplasm of trachea, bronchus and lung; Z80.6 Family history of leukemia; Z86.718 Personal history of other venous thrombosis and embolism; Z95.1 Presence of aortocoronary bypass graft; Z95.5 Presence of coronary angioplasty implant and graft; Z98.1 Arthrodesis status; Z68.32 Body mass index [BMI] 32.0-32.9, adult; Z88.0 Allergy status to penicillin; Z88.8 Allergy status to other drugs, medicaments and biological substances; Z88.5 Allergy status to narcotic agent; Z71.51 Drug abuse counseling and surveillance of drug abuser; Y93.89 Activity, other specified; Y92.89 Other specified places as the place of occurrence of the external cause; Y99.8 Other external cause status
CPT/HCPCS: 36415; 71045; 78452; 80053; 80061; 80305; 81001; 82948; 83036; 83735; 83880; 84100; 84443; 84484; 85025; 85610; 85730; 87081; 93005; 93017; 93306; 93971; 96374; 97116; 97162; 97530; 99285; A9500; G0378; J1644; J1815; J7030

== ENCOUNTER 2021-04-24 02:30 | Emergency (ER) | payer MEDICARE ==
[~2021-04-24] VITALS: Ht 195.6 cm; Wt 122.0 kg
[~2021-04-24 02:30] MED LIST changes: +ASPI-1071 PO; -ASPI-845 PO; +LACT1CAP26 PO; +NITR0.4T51 SL
[2021-04-24] MEDS ORDERED: morphine 4 MG/ML inj SYRINge IV PRN (02:45)
[2021-04-24] MEDS ORDERED: ondansetron/PF 4mg/2ml inj IV ONE (02:45)
[2021-04-24] MEDS ORDERED: [UNRECOGNIZED DRUG - OTHER] (02:58)
[2021-04-24 03:08] LABS: BASOPHILS # (AUTO) 0.1 X10'3 (0-0.2); BASOPHILS % (AUTO) 0.7 % (0-1); EOSINOPHILS # (AUTO) 0.3 X10'3 (0-0.9); EOSINOPHILS % (AUTO) 3.4 % (0-6); HEMATOCRIT 44.5 % (42.0-52.0); HEMOGLOBIN 14.5 g/dl (14.0-17.9); LYMPHOCYTES # (AUTO) 1.5 X10'3 (1.1-4.8); LYMPHOCYTES % (AUTO) 19.4 % (21-51); MEAN CORPUSCULAR HEMOGLOBIN 27.8 PG (27.0-31.0); MEAN CORPUSCULAR HGB CONC 32.6 g/dL (33.0-36.5); MEAN CORPUSCULAR VOLUME 85.2 FL (78-98); MEAN PLATELET VOLUME 8.6 FL (7.4-10.4); MONOCYTES # (AUTO) 0.7 X10'3 (0-0.9); MONOCYTES % (AUTO) 9.8 % (2-12); NEUTROPHILS % (AUTO) 66.7 % (42-75); PLATELET COUNT 188 X10'3 (140-440); RED BLOOD COUNT 5.22 X10'6 (4.70-6.10); RED CELL DISTRIBUTION WIDTH 18.1 % (11.5-14.5); WHITE BLOOD COUNT 7.5 X10'3 (4.5-11.0)
[2021-04-24 03:12] LABS: ALANINE AMINOTRANSFERASE 28 U/L (12-78); ALBUMIN 3.2 G/DL (3.4-5.0); ALBUMIN/GLOBULIN RATIO 0.9 (1.1-1.5); ALKALINE PHOSPHATASE 96 IU/L (46-116); ANION GAP 8 (8-16); ASPARTATE AMINO TRANSFERASE 20 U/L (10-37); BILIRUBIN,TOTAL 1.3 MG/DL (0.1-1.0); BLOOD UREA NITROGEN 17 MG/DL (7-18); BUN/CREATININE RATIO 12.8 (5.4-32.0); CALCIUM 9.8 MG/DL (8.5-10.1); CHLORIDE 108 MMOL/L (99-107); CREATININE 1.33 MG/DL (0.60-1.10); GLUCOSE 132 MG/DL (70-104); LIPASE 140 U/L (73-393); POTASSIUM 3.9 MMOL/L (3.5-5.1); SODIUM 142 MMOL/L (135-145); TOTAL CARBON DIOXIDE 26.2 MMOL/L (24-32); TOTAL PROTEIN 6.6 G/DL (6.4-8.2); eGFR 55 ML/MIN
[2021-04-24 05:17] VITALS: BP 166/91
== END 2021-04-24 06:30 | disposition home or self-care (01) ==
LOC: ER 02:31
DX: R10.11 Right upper quadrant pain (principal); I48.91 Unspecified atrial fibrillation; I25.10 Atherosclerotic heart disease of native coronary artery without angina pectoris; E78.00 Pure hypercholesterolemia, unspecified; I10 Essential (primary) hypertension; E11.9 Type 2 diabetes mellitus without complications; G89.29 Other chronic pain; Z98.890 Other specified postprocedural states; Z88.0 Allergy status to penicillin; Z88.8 Allergy status to other drugs, medicaments and biological substances; Z79.2 Long term (current) use of antibiotics; Z79.82 Long term (current) use of aspirin; Z79.899 Other long term (current) drug therapy
CPT/HCPCS: 36415; 76700; 80053; 83690; 85025; 96374; 96375; 99284; J2270; J2405

== ENCOUNTER 2023-11-09 08:07 | Day surgery (SDC) | payer MEDICARE ==
[~2023-11-09] VITALS: Ht 195.6 cm; Wt 102.3 kg
[2023-11-09] VITALS (12 sets, daily range): BP systolic 125–172; BP diastolic 60–96; PULSE 46–61; RESP 12–15; TEMP 98.1; O2SAT 15–100
[~2023-11-09 08:07] MED LIST changes: -CLIN300C54 PO; -GLYB1TAB39 PO; -TEST200V10 IM; +TEST200V33 IM; +[UNRECOGNIZED DRUG - CODE] PO; +[UNRECOGNIZED DRUG - OTHER]
[2023-11-09] MEDS ORDERED: diphenhydrAMINE 25mg capsule PO PRN (08:30)
[2023-11-09] MEDS ORDERED: sodium bicarbonate 1meq/ml syr 150 ML in dextrose 5%-water 1,000 ML IV SCH (08:30)
[2023-11-09] MEDS ORDERED: normal saline 1,000 ML IV SCH (08:30)
[2023-11-09] MEDS ORDERED: FURO40TA4 PO (08:50)
[2023-11-09] MEDS ORDERED: CLOP75TA33 PO (08:50)
[2023-11-09 09:08] LABS: BASOPHILS % (AUTO) 0.6 % (0-1); EOSINOPHILS # (AUTO) 0.2 X10'3 (0-0.9); EOSINOPHILS % (AUTO) 2.9 % (0-6); HEMATOCRIT 48.5 % (42.0-52.0); HEMOGLOBIN 16.1 g/dl (14.0-17.9); LYMPHOCYTES # (AUTO) 1.5 X10'3 (1.1-4.8); LYMPHOCYTES % (AUTO) 23.4 % (21-51); MEAN CORPUSCULAR HEMOGLOBIN 30.4 PG (27.0-31.0); MEAN CORPUSCULAR HGB CONC 33.1 g/dL (33.0-36.5); MEAN CORPUSCULAR VOLUME 91.8 FL (78-98); MEAN PLATELET VOLUME 9.3 FL (7.4-10.4); MONOCYTES # (AUTO) 0.7 X10'3 (0-0.9); MONOCYTES % (AUTO) 11.3 % (2-12); NEUTROPHILS # (AUTO) 3.8 X10'3 (1.8-7.7); NEUTROPHILS % (AUTO) 61.8 % (42-75); PLATELET COUNT 138 X10'3 (140-440); RED BLOOD COUNT 5.28 X10'6 (4.70-6.10); RED CELL DISTRIBUTION WIDTH 18.1 % (11.5-14.5); WHITE BLOOD COUNT 6.2 X10'3 (4.5-11.0)
[2023-11-09 09:13] LABS: ALBUMIN 3.9 G/DL (3.4-5.0); ANION GAP 6 (8-16); BLOOD UREA NITROGEN 28 MG/DL (7-18); BUN/CREATININE RATIO 20.4 (10.0-20.0); CALCIUM 11.4 MG/DL (8.5-10.1); CHLORIDE 101 MMOL/L (99-107); CREATININE 1.37 MG/DL (0.60-1.10); GLUCOSE 312 MG/DL (70-104); MAGNESIUM 1.8 MG/DL (1.5-2.4); POTASSIUM 4.3 MMOL/L (3.5-5.1); SODIUM 132 MMOL/L (135-145); TOTAL CARBON DIOXIDE 25.3 MMOL/L (24-32); eCRCL 70 ML/MIN; eGFR 52 ML/MIN
[2023-11-09 09:15] LABS: INR 1.1 INR; PROTHROMBIN TIME 11.4 SECONDS (9.0-12.0)
[2023-11-09] MEDS ORDERED: midazolam 1 mg/ML 2ml injection ONE ×3 (11:52→12:50)
[2023-11-09] MEDS ORDERED: LIDOcaine 1% 30ml preserv. free vial ONE (11:52)
[2023-11-09] MEDS ORDERED: heparin 1,000unit/ml 10ml vial 10 ML ONE (11:53)
[2023-11-09] MEDS ORDERED: iohexol 350MG/ML 100ml bottle IV ONE ×2 (11:53→12:58)
[2023-11-09] MEDS ORDERED: iohexol 350 MG/ML 50ML vial IV ONE ×2 (11:53→12:41)
[2023-11-09] MEDS ORDERED: fentaNYL/PF 50MCG/1 ML 2ML syringe ONE (11:53)
[2023-11-09] MEDS ORDERED: clopidogrel 300mg tablet ONE (13:36)
[2023-11-09] MEDS ORDERED: HYDROcodone/acetaminophen 10/325mg tab PO PRN (14:25)
[2023-11-09] MEDS ORDERED: proCHLORperazine 10 MG/2 ml inj IV PRN (14:25)
[2023-11-09] MEDS ORDERED: HYDROcodone/acetaminophen 5mg/325mg tablet PO PRN (14:25)
[2023-11-09] MEDS ORDERED: ondansetron/PF 4mg/2ml inj IV PRN (14:25)
== END 2023-11-09 19:30 | disposition home or self-care (01) ==
LOC: SSTAY O 08:07
PROVIDERS: ATTEND Internal Medicine Cardiovascular Disease
DX: R06.02 Shortness of breath (principal); I25.810 Atherosclerosis of coronary artery bypass graft(s) without angina pectoris; I25.10 Atherosclerotic heart disease of native coronary artery without angina pectoris; E11.9 Type 2 diabetes mellitus without complications; E78.5 Hyperlipidemia, unspecified; I10 Essential (primary) hypertension; Z79.82 Long term (current) use of aspirin; Z79.84 Long term (current) use of oral hypoglycemic drugs; Z79.899 Other long term (current) drug therapy; Z79.01 Long term (current) use of anticoagulants; Z88.0 Allergy status to penicillin; Z88.1 Allergy status to other antibiotic agents; Z88.8 Allergy status to other drugs, medicaments and biological substances; Z87.891 Personal history of nicotine dependence
CPT/HCPCS: 36415; 80048; 82948; 83735; 85025; 85610; 92978; 93005; 93459; 99152; 99153; C1874; C9600; J1644; J2250; J3010; J3490; J7030; Q0163; Q9967; A6258; C1725; C1751; C1753; C1760; C1769; C1894